=== PATIENT | female | born 1965 | race Caucasian/White ===

== ENCOUNTER 2020-06-21 16:34 | Emergency (ER) | payer OTHER, SELFPAY ==
--- NOTE | ~2020-06-21 | CT_ITS ---
EXAMINATION: CT ABDOMEN AND PELVIS WITH CONTRAST CLINICAL INFORMATION: Dominant pain COMPARISON: None TECHNIQUE: Multidetector volumetric images were obtained from the superior aspect of the liver through the pubic symphysis following administration 85 mL of Omnipaque 350 intravenous contrast. Sagittal and coronal reformatted images were obtained on the technologist's workstation. Oral contrast: No This CT examination was performed using dose optimization techniques as appropriate, variously including the following: *Automated exposure control *Adjustment of mA and/or kV according to patient size (this includes techniques or standardized protocols for targeted exams where dose is matched to indication/reason for exam; i.e. extremities or head) *Use of iterative reconstruction technique DLP: 540 mGy-cm FINDINGS: LUNG BASES: The visualized lung bases are unremarkable. LIVER, GALLBLADDER, AND BILIARY TREE: The liver is normal in size, shape, and attenuation. No focal hepatic lesion or biliary ductal dilatation is present. Gallbladder unremarkable. PANCREAS: Unremarkable. SPLEEN: Normal size. There is a 1.7 cm peripherally calcified cyst within the inferior pole of the spleen, benign. ADRENAL GLANDS: Unremarkable. KIDNEYS AND URETERS: The kidneys are normal in size, shape, and attenuation. There is a 2 mm calculus in the upper pole of left kidney. No ureteral calculi. No hydronephrosis or hydroureter. No perinephric stranding. BLADDER: Unremarkable. GASTROINTESTINAL TRACT: The small and large bowel are unremarkable. The appendix is unremarkable. ABDOMINAL WALL: Small fat-containing umbilical hernia. LYMPH NODES: Normal. VASCULAR: Unremarkable. PELVIC VISCERA: Hysterectomy. No adnexal abnormalities. OSSEOUS STRUCTURES: No acute or suspicious osseous abnormalities. CT/CT abdomen pelvis w con IMPRESSION: No acute findings within the abdomen or pelvis to explain the patient's symptomatology. Nonobstructive 2 mm calculus, left upper kidney. Hysterectomy. Small fat-containing umbilical hernia without inflammation.
[2020-06-21 16:54] VITALS: BP 130/62; PULSE 68; RESP 18; TEMP 36.4; O2SAT 100; BMI 26.5
[2020-06-21 21:20] VITALS: BP 129/67; PULSE 67; RESP 18; O2SAT 100
[2020-06-21 21:40] LABS: MANUAL DIFF FLAG NO
[2020-06-21 21:41] LABS: Basophils Percent Auto 0.7 % (0-2); Eosinophils Absolute Auto 0.1 X10*3/uL (0.0-0.4); Eosinophils Percent Auto 2.3 % (0-4); Hematocrit 36.8 % (37-47); Hemoglobin 11.8 g/dl (12.0-16.0); Lymphocytes Absolute Auto 2.9 X10*3/uL (1.2-4.9); Lymphocytes Percent Auto 48.8 % (20-40); Mean Corpuscular HGB Conc 32.1 g/dl (31.0-35.0); Mean Corpuscular Hemoglobin 29.1 pg (27.0-33.0); Mean Corpuscular Volume 90.6 fL (80-98); Mean Platelet Volume 9.9 fL (9.4-12.3); Monocytes Absolute Auto 0.6 X10*3/uL (0.1-1.2); Monocytes Percent Auto 9.2 % (2-11); Neutrophils Absolute Auto 2.3 X10*3/uL (2.0-8.3); Platelet Count 248 X10*3/uL (160-400); Red Blood Count 4.06 X10*6/uL (4.20-5.50); Red Cell Distribution Width 13.7 % (11.0-16.0)
[2020-06-21 21:47] LABS: Glucose Urine UA NEG (NEG); Leukocyte Esterase Urine NEG (NEG); Nitrite Urine NEG (NEG); PH 6.5 (5.0-8.0); Specific Gravity - Urine 1.015 (1.005-1.025); Urine Blood NEG (NEG); Urine Ketones NEG (NEG); Urine Protein NEG (NEG-TRACE)
[2020-06-21 21:50] LABS: Appearance Urine CLEAR; Color Urine YELLOW
--- NOTE | 2020-06-21 21:57 | ED_ITS ---
HPI - Abdominal Pain General Chief Complaint: Abdominal Pain Stated Complaint: abdominal pain Time Seen by Provider: 06/21/20 21:13 History of Present Illness HPI narrative: Patient is a 55-year-old female with history of diabetes. Presents today with having abdominal pain that is diffuse over the entire abdomen. Been ongoing since this morning radiates to the back. Patient denies any coughing congestion upper respiratory symptoms. No chest pain. Positive history of being on an insulin pump. Patient denies any diarrhea. Pain not affected by food. No pain on urination. Patient denies any dizziness. Related Data Previous Rx's Medication Instructions Recorded ondansetron 4 mg PO TID PRN 5 Days #10 tab 06/22/20 Allergies Allergy/AdvReac Type Severity Reaction Status Date / Time No Known Allergies Allergy Unverified 06/21/20 16:53 [No Known Allergies*] Review of Systems Review of Systems Constitutional: No Weight loss, No Fever, No Chills, No Night Sweats, No Fatigue, No Malaise ENT/Mouth: No Hearing loss, No Ear Pain, No Nasal Congestion, No Sinus Pain, No Hoarseness, No sore throat, No Rhinorrhea, No Swallowing Difficulty Eyes: No Eye Pain, No Swelling, No Redness, No Foreign Body, No Discharge, No Vision Changes Cardiovascular: No Chest Pain, No SOB, No Dyspnea on Exertion, No Orthopnea, No Edema, No Palpitations Respiratory: No Cough, No Sputum, No Wheezing, No Smoke Exposure, No Dyspnea Gastrointestinal: Positive nausea positive abdominal pain diffuse Genitourinary: no irregular bleeding, No Dysuria, No Urinary Frequency, No Hematuria, No Urinary Incontinence, No Urgency, No Flank Pain, No Urinary Flow Changes, No Hesitancy Musculoskeletal: No joint pain, No Myalgias, No Joint Swelling Skin: No Skin Lesions, No rash Neuro: No Weakness, No Numbness, No Paresthesias, No Loss of Consciousness, No Dizziness, No Headache Psych: No Anxiety/Panic, No Depression, No SI/HI/AH/VH, No Social Issues, Heme/Lymph: No Bruising, No Bleeding,No Lymphadenopathy Endocrine: No Polyuria, No Polydipsia, No Temperature Intolerance Physical Exam Vital Signs: Vital Signs: Last Vital Signs Temp 98.1 F 06/21/20 22:00 Pulse 73 06/21/20 22:00 Resp 16 06/21/20 22:00 BP 112/54 L 06/21/20 22:00 Pulse Ox 100 06/21/20 22:00 Body Mass Index 26.5 Appearance: Alert. Oriented X3. No acute distress. Eyes: Pupils equal, round and reactive to light. ENT: Pharynx normal. Neck: Normal inspection. Neck supple. No lymph nodes noted. No crepitus CVS: Normal heart rate and rhythm. Pulses normal. Normal S1 and S2 Respiratory: No respiratory distress. Breath sounds normal. No Wheezing. No rales Abdomen: Soft and nontender. No rigidity. No distention. good BS x4 Skin: Skin warm and dry. Normal skin color. Normal skin turgor. Extremities: No lower extremity edema. Neurovascular intact to all extremities. No Lacerations. No Rash Neuro: Oriented X 3. No motor deficit. No sensory deficit. Moving all extermities. No slurred speech MDM - Abdominal Pain MDM Narrative Medical decision making narrative: Patient's CT scan did not show any acute obstruction, abscess, perforation. Electrolytes are unremarkable LFTs are normal. Urine showed no evidence of infection. Patient's symptom improved. Will discharge patient home. Currently in stable condition. Differential Diagnosis Differential diagnosis: Likely abdominal pain, aortic dissection, acute appendicitis, bowel perforation, calculus of kidney, constipation, diverticu litis, gastroenteritis, mesenteric ischemia, pancreatitis, peptic ulcer disease and small bowel obstruction Medical Records Attestation: I reviewed the patient's medical records. Lab Data Attestation: I reviewed the patient's lab results. Result diagrams: 06/21/20 21:33 06/21/20 21:33 Labs: Lab Results 06/21/20 06/21/20 06/21/20 Range/Units 21:33 21:33 21:33 WBC 6.0 (4.8-10.8) X10*3/uL RBC 4.06 L (4.20-5.50) X10*6/uL Hgb 11.8 L (12.0-16.0) g/dl Hct 36.8 L (37-47) % MCV 90.6 (80-98) fL MCH 29.1 (27.0-33.0) pg MCHC 32.1 (31.0-35.0) g/dl RDW 13.7 (11.0-16.0) % Plt Count 248 (160-400) X10*3/uL MPV 9.9 (9.4-12.3) fL Immature Gran % (Auto) 0.0 (0.0-0.4) % Neut % (Auto) 39.0 L (45-73) % Lymph % (Auto) 48.8 H (20-40) % [place] % (Auto) 9.2 (2-11) % Eos % (Auto) 2.3 (0-4) % Baso % (Auto) 0.7 (0-2) % Lymph # (Auto) 2.9 (1.2-4.9) X10*3/uL [place] # (Auto) 0.6 (0.1-1.2) X10*3/uL Eos # (Auto) 0.1 (0.0-0.4) X10*3/uL Baso # (Auto) 0.0 (0.0-0.2) X10*3/uL Abs Immat Gran (auto) 0.00 (0.00-0.03) X10*3/uL Absolute Neuts (auto) 2.3 (2.0-8.3) X10*3/uL Absolute Nucleated RBC 0.000 (0.0-0.012) X10*3/uL Nucleated RBC % (auto) 0.0 (0.0-0.2) /100WBC Hold Blue Top SEE NOTE Sodium 138 (135-145) mmol/L Potassium 4.2 (3.3-5.1) mmol/L Chloride 102 (96-108) mmol/L Carbon Dioxide 30 H (22-29) mmol/L Anion Gap 10 L (12-20) BUN 8 L (9-16) mg/dL Creatinine 0.63 (0.5-1.4) mg/dL Estim Creat Clear Calc 92.3 Estimated GFR > 60 Random Glucose 139 H (60-115) mg/dL Calcium 8.9 (8.4-10.2) mg/dL Total Bilirubin 0.8 (0.0-1.0) mg/dL Direct Bilirubin 0.3 (0.0-0.5) mg/dL AST 19 (5-31) U/L ALT 13 (0-31) U/L Alkaline Phosphatase 60 (39-117) U/L Total Protein 7.1 (6.5-8.0) g/dL Albumin 4.2 (3.5-5.0) g/dL Lipase 13 (8-78) U/L Urine Color Urine Appearance Urine pH (5.0-8.0) Ur Specific [place] (1.005-1.025) Urine Protein (NEG-TRACE) MG/DL Urine Glucose (UA) (NEG) MG/DL Urine Ketones (NEG) MG/DL Urine Blood (NEG) Urine Nitrite (NEG) Ur Leukocyte Esterase (NEG) 06/21/20 Range/Units 21:33 WBC (4.8-10.8) X10*3/uL RBC (4.20-5.50) X10*6/uL Hgb (12.0-16.0) g/dl Hct (37-47) % MCV (80-98) fL MCH (27.0-33.0) pg MCHC (31.0-35.0) g/dl RDW (11.0-16.0) % Plt Count (160-400) X10*3/uL MPV (9.4-12.3) fL Immature Gran % (Auto) (0.0-0.4) % Neut % (Auto) (45-73) % Lymph % (Auto) (20-40) % [place] % (Auto) (2-11) % Eos % (Auto) (0-4) % Baso % (Auto) (0-2) % Lymph # (Auto) (1.2-4.9) X10*3/uL [place] # (Auto) (0.1-1.2) X10*3/uL Eos # (Auto) (0.0-0.4) X10*3/uL Baso # (Auto) (0.0-0.2) X10*3/uL Abs Immat Gran (auto) (0.00-0.03) X10*3/uL Absolute Neuts (auto) (2.0-8.3) X10*3/uL Absolute Nucleated RBC (0.0-0.012) X10*3/uL Nucleated RBC % (auto) (0.0-0.2) /100WBC Hold Blue Top Sodium (135-145) mmol/L Potassium (3.3-5.1) mmol/L Chloride (96-108) mmol/L Carbon Dioxide (22-29) mmol/L Anion Gap (12-20) BUN (9-16) mg/dL Creatinine (0.5-1.4) mg/dL Estim Creat Clear Calc Estimated GFR Random Glucose (60-115) mg/dL Calcium (8.4-10.2) mg/dL Total Bilirubin (0.0-1.0) mg/dL Direct Bilirubin (0.0-0.5) mg/dL AST (5-31) U/L ALT (0-31) U/L Alkaline Phosphatase (39-117) U/L Total Protein (6.5-8.0) g/dL Albumin (3.5-5.0) g/dL Lipase (8-78) U/L Urine Color YELLOW Urine Appearance CLEAR Urine pH 6.5 (5.0-8.0) Ur Specific [place] 1.015 (1.005-1.025) Urine Protein NEG (NEG-TRACE) MG/DL Urine Glucose (UA) NEG (NEG) MG/DL Urine Ketones NEG (NEG) MG/DL Urine Blood NEG (NEG) Urine Nitrite NEG (NEG) Ur Leukocyte Esterase NEG (NEG) Discharge Plan Discharge Clinical Impression: Abdominal pain Patient Disposition: Home, Self-Care Instructions: Abdominal Pain (ED) Prescriptions: New ondansetron 4 mg tablet,disintegrating 4 mg PO TID PRN (Reason: nausea and vomiting) 5 Days Qty: 10 RF: 0 Referrals: Physician,Unknown [Primary Care Provider] - 2 days PMF Past Medical History Attestation statement: The following information was validated with the patient. Social History Social History Smoking Status: Never smoker Substance Use Type: Marijuana Substance Use Frequency: Daily Last Used Substance: Days (ago) Any prior treatment program specific to substance use: No Advance Directives: No Advance Directives Information Provided: No
[2020-06-21] MEDS: ondansetron HCL 4 MG/2 ML VIAL IVPUSH (21:59)
[2020-06-21 22:00] VITALS: BP 112/54; PULSE 73; RESP 16; TEMP 36.7; O2SAT 100
[2020-06-21 22:08] LABS: Alanine Aminotransferase 13 U/L (0-31); Albumin Level 4.2 g/dL (3.5-5.0); Alkaline Phosphatase 60 U/L (39-117); Anion Gap 10 (12-20); Aspartate Amino Transferase 19 U/L (5-31); Bilirubin Direct 0.3 mg/dL (0.0-0.5); Bilirubin Total 0.8 mg/dL (0.0-1.0); Blood Urea Nitrogen 8 mg/dL (9-16); Calcium 8.9 mg/dL (8.4-10.2); Carbon Dioxide 30 mmol/L (22-29); Chloride 102 mmol/L (96-108); Creatinine Clr Calc Pharmacy 92.3; Estimated Glomerular Filt Rate > 60; Glucose Random 139 mg/dL (60-115); Potassium 4.2 mmol/L (3.3-5.1); Sodium 138 mmol/L (135-145); Total Protein 7.1 g/dL (6.5-8.0)
[2020-06-21 22:21] LABS: Lipase 13 U/L (8-78)
[2020-06-21] MEDS: iohexoL 350 MG/ML 75 ML INFUS..BTL IV (22:47)
== END 2020-06-22 00:41 | disposition home or self-care (01) ==
PROVIDERS: Emergency Provider Emergency Medicine Emergency Medical Services
DX: R10.9 Unspecified abdominal pain (principal); E11.9 Type 2 diabetes mellitus without complications; Z79.4 Long term (current) use of insulin; Z96.41 Presence of insulin pump (external) (internal)
CPT/HCPCS: 36415; 74177; 80053; 80076; 81003; 82248; 83690; 85025; 96374; 99284; J2405; Q9967

== ENCOUNTER 2021-02-14 14:16 | Outpatient (REF) | payer OTHER, SELFPAY | END 2021-02-14 14:17 | disposition home or self-care (01) | LOC: HO.LNP 14:16 | PROVIDERS: Visit Provider Physician Assistant Medical | DX: N39.0 Urinary tract infection, site not specified (principal) | CPT/HCPCS: 87086 ==

== ENCOUNTER 2023-02-24 11:16 | Outpatient (AMB) | payer OTHER, SELFPAY ==
[2023-02-24 12:38] VITALS: BP 110/60; PULSE 79; TEMP 36.6; O2SAT 99; BMI 28.9
--- NOTE | 2023-02-24 12:38 | AM.OFFWIN_ITS ---
Intake Vital Signs 02/24/23 12:38 Height 5 ft 2 in Weight 158 lb BMI 28.9 BP 110/60 Blood Pressure Location Rt brachial Position Sitting Pulse 79 Pulse Source Pulse Oximeter Temp 98 F Temp Source Oral Pulse Oximetry (%) 99 Oxygen Delivery Method Room Air Intake Visit Reasons: EP, fatigue, headache ([phone]) Intake Note: Pt is here today c/o headache and fatigue x2.5weeks Patient Tobacco Use Status: Never used Tobacco Allergies No Known Allergies [No Known Allergies*] Allergy (Verified 02/24/23 12:38) HPI HPI Comments History of Present Illness Details 57 year old female that presents for pal pitations. Patient states that she has had hard and fast beating hard for several months now denies fever chills endorses some of flashes. She has had a hysterectomy. She denies chest pain or shortness of breath PFSH Medical History (Updated 02/24/23 @ 12:57 by HERMILA Henson) Palpitations Social History Patient Tobacco Use Status: Never used Tobacco Substance Use Type: Marijuana Review of Systems Card Details: Palpitations Physical Exam Vital Signs: Last Vital Signs Temp 98 F 02/24/23 12:38 Pulse 79 02/24/23 12:38 BP 110/60 02/24/23 12:38 Pulse Ox 99 02/24/23 12:38 Oxygen Delivery Method Room Air 02/24/23 12:38 BMI result Body Mass Index 28.9 Const General: cooperative, no acute distress and alert Orientation/consciousness: patient oriented x3 Limitations: no limitations HEENT Head: Yes normal to inspection Ears: hearing grossly normal bilaterally and external ears normal General nose exam: Normal external nose present Eyes General: appearance normal, both eyes and all related structures Neck Neck: Yes normal visual inspection Chest Chest palpation & inspection: normal inspection of the chest Resp Effort & Inspection: normal respiratory effort, able to speak in complete sentences and no audible wheezes Auscultation: clear to auscultation bilaterally Cardio Rate: regular rate Rhythm: regular rhythm GI Inspection: Yes normal to inspection Palpation (GI): Soft to palpation and nontender Skin General skin exam: no rashes or lesions noted Neuro General: patient oriented x3 Psych Appearance: grossly normal Mental Status: mental status grossly normal Speech and movement: Normal speech and movement present Affect: normal affect Attitude: cooperative Thought process: Normal thought process present Thought content: Normal thought content present Assessment & Plan Assessment & Plan (1) Palpitations: Code(s): R00.2 - Palpitations Plan: Unclear etiology of patient's symptoms. Exam was benign. Will order EKG electrolytes as well as thyroid. Will follow-up on these results. Discussed with patient that she likely will need to follow-up with her primary for referral for Holter monitor and/or cardiology evaluation. Orders: Orders AMB EKG-In Office Today R00.2 - Palpitations TSH reflex Free T4 Today R00.2 - Palpitations Comprehensive Met. Panel Today R00.2 - Palpitations Magnesium Today R00.2 - Palpitations Vitamin B12 Today R00.2 - Palpitations Coding Level of Care Code Est Pt Level 3 (85023) Diagnoses Palpitations R00.2
== END 2023-02-24 13:06 | disposition home or self-care (01) ==
PROVIDERS: Visit Provider Physician Assistant
DX: R00.2 Palpitations (principal)
CPT/HCPCS: 99051; 99213

== ENCOUNTER 2023-02-24 13:15 | Outpatient (REF) | payer OTHER, SELFPAY ==
[2023-02-24 15:49] LABS: Alanine Aminotransferase 9 U/L (0-31); Albumin Level 4.3 g/dL (3.5-5.0); Alkaline Phosphatase 63 U/L (39-117); Anion Gap 13 (12-20); Aspartate Amino Transferase 15 U/L (5-31); Bilirubin Total 0.8 mg/dL (0.0-1.0); Blood Urea Nitrogen 10 mg/dL (9-16); Calcium 9.5 mg/dL (8.4-10.2); Carbon Dioxide 30 mmol/L (22-29); Chloride 102 mmol/L (96-108); Estimated Glomerular Filt Rate > 60; Glucose Random 211 mg/dL (60-115); Magnesium 2.3 mg/dL (1.6-2.6); Potassium 3.9 mmol/L (3.3-5.1); Sodium 141 mmol/L (135-145); Total Protein 7.5 g/dL (6.5-8.0)
[2023-02-24 16:05] LABS: TSH reflex Free T4 1.05 uIU/mL (0.32-4.0)
[2023-02-24 16:12] LABS: Vitamin B12 951 pg/mL (200-900)
== END 2023-02-24 13:16 | disposition home or self-care (01) ==
LOC: HO.HMGCLDS 13:15
PROVIDERS: PCP Internal Medicine; Visit Provider Physician Assistant
DX: R00.2 Palpitations (principal)
CPT/HCPCS: 36415; 80053; 82607; 83735; 84443

== ENCOUNTER 2023-04-11 08:39 | Outpatient (AMB) | payer OTHER, SELFPAY ==
[2023-04-11 09:45] VITALS: BP 112/78; PULSE 86; TEMP 36.4; O2SAT 96; BMI 28.9
--- NOTE | 2023-04-11 09:45 | AM.OFFWIN_ITS ---
Intake Vital Signs 04/11/23 09:45 Height 5 ft 2 in Weight 158 lb BMI 28.9 BP 112/78 Blood Pressure Location Lt brachial Position Sitting Pulse 86 Pulse Source Pulse Oximeter Temp 97.5 F Temp Source Temporal Artery Scan Pulse Oximetry (%) 96 Oxygen Delivery Method Room Air Intake Visit Reasons: EP Sinus [phone] Intake Note: ptis here today for sinus started last sunday Patient Tobacco Use Status: Never used Tobacco Allergies No Known Allergies [No Known Allergies*] Allergy (Verified 04/11/23 09:55) Medication List - Last Reconciled 04/11/23 by CARIE Collazo insulin lispro (Humalog U-100 Insulin) subcut Do you need a note to return to daycare/school/sports/work: No HPI HPI Comments History of Present Illness Details here today w/ sinus pain and pressure present for > 2 weeks admits to being sick before the onset of this with resolution for 1 week mild blood tinged sputum, + headache pnd causing prod cough using advil cold and sinus w + relief PFSH Medical History (Updated 04/11/23 @ 09:57 by CARIE Collazo) Palpitations Social History Patient Tobacco Use Status: Never used Tobacco Substance Use Type: Marijuana Review of Systems Const All systems reviewed & are unremarkable except as noted in HPI and below Physical Exam Vital Signs: Last Vital Signs Temp 97.5 F 04/11/23 09:45 Pulse 86 04/11/23 09:45 BP 112/78 04/11/23 09:45 Pulse Ox 96 04/11/23 09:45 Oxygen Delivery Method Room Air 04/11/23 09:45 BMI result Body Mass Index 28.9 Const Other: awake alert nad TM intact with effusion on R, clear on L purulent drainage from nares, turbinates pale and edematous, pain with palp frontal and max sinuses R>L PND RRR LS CTAB Assessment & Plan Assessment & Plan (1) Sinusitis: Code(s): J32.9 - Chronic sinusitis, unspecified Qualifiers: Sinusitis location: pansinusitis Chronicity: acute Recurrence: non- recurrent Qualified Code(s): J01.40 - Acute pansinusitis, unspecified Plan: . Plan states PCN does not work for her do not use nasal spray only saline or huber pot advil cold and sinus for 1 more day then stop. use analgesic only PRN Medications: New azithromycin For 250 mg dose pack: take 500 mg today (day 1), then 250 mg for 4 days (days 2-5) PO 5 days 6 tabs 0RF Coding Level of Care Code Est Pt Level 3 (92128) Diagnoses Acute non-recurrent pansinusitis J01.40 Sinusitis location: pansinusitis Chronicity: acute Recurrence: non-recurrent
== END 2023-04-11 10:02 | disposition home or self-care (01) ==
PROVIDERS: PCP Internal Medicine; Visit Provider Nurse Practitioner Family
DX: J01.40 Acute pansinusitis, unspecified (principal)
CPT/HCPCS: 99213

== ENCOUNTER 2024-11-01 10:58 | Emergency (ER) | payer OTHER, SELFPAY ==
--- NOTE | ~2024-11-01 | CT_ITS ---
CLINICAL HISTORY: abd pain > RUQ CT abdomen and pelvis with contrast Comparison: None provided Findings: No consolidation or effusion. The gallbladder and solid organs are within normal limits. No renal stones.Rim calcified benign cyst within the spleen. No bowel obstruction, pneumoperitoneum, or pneumatosis. Pelvic contents unremarkable. Normal appendix. No acute fracture. IMPRESSION: No acute findings. This document has been electronically signed by: Rena De Leon MD on 11/01/2024 17:27:45
--- NOTE | ~2024-11-01 | US_ITS ---
CLINICAL HISTORY: RUQ pain --- Additional Notes or Special Instructions: called in US abdomen limited Comparison: CT/SR - CT ABDOMEN PELVIS W IV CON - 11/01/24 13:30 EDT Findings: The liver is normal in size and echotexture. There is no intrahepatic bile duct dilatation. The common duct is 5 mm in diameter. The gallbladder is normal. There is no sonographic Villanueva sign. The main portal vein is antegrade. No ascites. IMPRESSION: Unremarkable limited abdominal ultrasound. This document has been electronically signed by: Rena De Leon MD on 11/01/2024 20:19:00
--- NOTE | ~2024-11-01 | CT_ITS ---
CLINICAL HISTORY: cp CT chest with contrast Comparison: CR - XR CHEST 1V - 11/01/24 11:51 EDT Findings: The heart size is normal. The visualized thyroid and mediastinum are unremarkable. No consolidation or effusion. No acute fractures. A 1.5 cm peripherally calcified cyst within the spleen. IMPRESSION: 1. No acute disease within the chest. No central pulmonary embolism. No evidence of acute aortic syndrome. Lungs are grossly clear. This document has been electronically signed by: Rena De Leon MD on 11/01/2024 17:38:46
--- NOTE | ~2024-11-01 | XR_ITS ---
CLINICAL HISTORY: cp 1 view chest x-ray Comparison: None provided Findings: The lungs are clear. Heart size is normal. No acute fracture. 1.5 cm peripherally calcified structure is seen in the left quadrant. IMPRESSION: 1. No acute cardiopulmonary abnormality. 2. 1.5 cm peripherally calcified structure in the left upper quadrant, which may represent a splenic artery aneurysm. Recommend CT abdomen for further evaluation. This document has been electronically signed by: Manny Guzman on 11/01/2024 12:55:58
--- NOTE | 2024-11-01 10:59 | ECG_ITS ---
Test Reason : CHEST PAIN Blood Pressure : */* mmHG Vent. Rate : 73 BPM Atrial Rate : 73 BPM P-R Int : 156 ms QRS Dur : 80 ms QT Int : 396 ms P-R-T Axes : 79 43 54 degrees QTcB Int : 436 ms Normal sinus rhythm Cannot rule out Anterior infarct , age undetermined Abnormal ECG No previous ECGs available Referred By: Generic ED Physician Electronically Signed By: Eduardo Estrada
[2024-11-01 11:07] VITALS: BP 147/67; PULSE 67; RESP 18; TEMP 36.7; O2SAT 97; BMI 29.3
--- NOTE | 2024-11-01 11:27 | ED_ITS ---
HPI - Chest Pain General Chief Complaint: Chest Pain Stated Complaint: back abd and chest pain Time Seen by Provider: 11/01/24 11:08 Source: patient Mode of arrival: ambulatory Limitations: no limitations History of Present Illness ED Provider: HERMILA Hendricks HPI narrative: This is a 59-year-old female history of DM I, UTIs, sinusitis presents to the emergency department with complaints of chest discomfort abdominal discomfort ongoing for the past week or so. Patient reports last week she experienced diffuse abdominal discomfort that it was severe in nature, she was not sure if it was originating from her back however it was quite uncomfortable. Over the past few days she has developed chest pressure and heaviness in the substernal region she tells me it feels like something is sitting on her chest. She denies associated shortness breath, fevers, chills, nausea, vomiting, diarrhea, recent sick contacts, headache, vision changes, dizziness, weakness, changes in bowel habits in urinary habits. Related Data Home Medications ?Medication ?Instructions ?Recorded ?Confirmed insulin lispro 100 unit/mL subcut 02/14/21 04/11/23 subcutaneous solution (Humalog U-100 Insulin) Previous Rx's ?Medication ?Instructions ?Recorded azithromycin 250 mg tablet See Rx Instructions PO .COM PLEX 5 04/12/23 days #6 tabs famotidine 20 mg tablet (Pepcid) 20 mg PO BID 5 days # 28 tabs 11/01/24 omeprazole 20 mg capsule,delayed 20 mg PO DAILY #14 ca ps 11/01/24 release Allergies Allergy/AdvReac Type Severity Reaction Status Date / Time No Known Allergies (No Known Allergy Verified 11/01/24 11:13 Allergies*) Review of Systems 2 Review of Systems: Yes all other systems are reviewed and are negative [facility] Past Medical History Attestation statement: The following information was validated with the patient. Source: old records reviewed and nursing notes reviewed Medical History (Updated 11/01/24 @ 22:50 by Darnell Morales PA-C) Palpitations Social History Social History Patient Tobacco Use Status: Never used Tobacco Smoked in Last 30 Days: No Substance Use Type: Marijuana Advance Directives: No Advance Directives Information Provided: Yes Do you have a plan to hurt others: No Plan Patient : No Physical Exam 2 Exam: Exam: Appearance: Alert.? Oriented X3.? No acute distress.? Head: Normocephalic, atraumatic, no step-offs or deformities Eyes: Pupils equal, round and reactive to light.? ENT: Pharynx normal.? Neck: Normal inspection.? Neck supple.?+palpation to anterior chest wall throughout. CVS: Normal heart rate and rhythm.? Pulses normal.? Respiratory: No respiratory distress.? Breath sounds normal.? Abdomen: Soft and Tender throughout all 4 quadrants worse to the right upper quadrant. Negative Villanueva sign. Negative Rovsing and obturator..? Skin: Skin warm and dry.? Normal skin color.? Normal skin turgor.? Extremities: No lower extremity edema.? No calf ttp. 5/5 strength to bilateral upper and lower extremities Back: No midline tenderness, no C-spine tenderness, full range of motion, no CVA tenderness bilaterally Neuro: Oriented X 3.? No motor deficit.? No sensory deficit. CN 2-12 intact Vital Signs: Vital Signs: Last Vital Signs Temp 98.4 F 11/01/24 20:06 Pulse 60 11/01/24 20:06 Resp 18 11/01/24 20:06 BP 113/53 L 11/01/24 20:06 Pulse Ox 97 11/01/24 20:06 O2 Del Method Room Air 11/01/24 20:06 BMI result Body Mass Index 29.3 vss Course Reevaluation(s) Reevaluation #1: CBC Unremarkable. Chemistry no acute findings needing intervention. Her bilirubin is slightly higher than usual 1.2 CT abdomen and pelvis has been ordered for further evaluation of this. Troponin negative, EKG nonischemic. Negative D-dimer. No indication for CTA I do not suspect ACS or PE. Flu, COVID, RSV negative. X-ray of the chest with no acute cardiopulmonary abnormalities 1.5 cm peripherally calcified structure in the left upper quadrant which could represent a splenic artery aneurysm, CT abdomen ordered and pending Time: 13:21 Reevaluation #2: Upon re-evaluation patient is still in significant discomfort Tylenol was orered Time: 16:25 Reevaluation #3: I re-evaluated patient again she is still quite uncomfortable. Will order it designated right upper quadrant ultrasound to rule out cholecystitis as her pain is localized to the right upper quadrant. Time: 17:49 Additional Reevaluation(s): 1842 Patients US of RUQ pending at this time Sign out to Darnell Consultations Consultation #1: 8:24 PM 11/01/2024 ([employer]): Patient was signed out to this provider at shift change, in summary the patient is a 59-year-old female presenting to the ED for complaints of chest pain, shortness of breath, and right upper quadrant abdominal pain. Patient had a negative CT of the abdomen, CT of the chest, negative cardiac, metabolic, viral, coagulopathic, and infectious workup. Patient was persistently tender in the right upper quadrant despite use of Toradol, IV Tylenol, and morphine. Patient was sent for a right upper quadrant ultrasound. The patient's right upper quadrant ultrasound was pending at time of sign-out. At this time the patient's right upper quadrant ultrasound has resulted and is negative for acute process. We will reassess the patient's pain and plan for discharge. 9:00 PM 11/01/2024 (Paola [employer]AN[employer]): Upon reassessment the patient reports she is having persistent gnawing epigastric and right upper quadrant abdominal pain with nausea. Patient reports symptoms have been ongoing for the past 2 days but she has felt unwell for the past 2 months. The patient reports symptoms are worse upon waking in the morning. Patient's symptoms may be related to GERD/gastritis. We will treat with GI cocktail and reassess, if symptoms improve patient will be discharged with 2 week course of omeprazole and Pepcid, as well as PCP follow up for GI referral. 10:43 PM 11/01/2024 (Paola [employer]): Patient reports symptoms have markedly improved following GI cocktail, patient likely suffering from gastritis. The patient will be discharged as described above. Medications Administered Discontinued Medications Generic Name Dose Route Start Last Admin Trade Name Freq PRN Reason Stop Dose Admin Al Hydroxide/Mg Hydroxide 30 ml 11/01/24 20:59 11/01/24 21:04 Magnesium Hydrox/Alum Hydrox 30 Ml Oral.Susp PO 11/01/24 21:00 30 ml ONCE ONE Administration Famotidine 20 mg 11/01/24 20:59 11/01/24 21:04 Famotidine 20 Mg Tablet PO 11/01/24 21:00 20 mg ONCE ONE Administration Acetaminophen 1,000 mg in 100 mls @ 400 mls/hr 11/01/24 16:38 11/01/24 19:31 Ofirmev IV 11/01/24 16:52 Infused ONCE ONE Infusion Iohexol 85 ml 11/01/24 13:38 11/01/24 13:38 Iohexol 350 Mg/Ml 100 Ml Infus..Btl IV 11/01/24 13:39 85 ml ONCE ONE Administration Ketorolac Tromethamine 30 mg 11/01/24 13:24 11/01/24 13:56 Ketorolac Tromethamine 15 Mg/Ml Vial IVPUSH 11/01/24 13:25 30 mg ONCE ONE Administration Lidocaine HCl 15 ml 11/01/24 20:59 11/01/24 21:04 Lidocaine Hcl Viscous 2 % 15 Ml Solution PO 11/01/24 21:00 15 ml ONCE ONE Administration Morphine Sulfate 2 mg 11/01/24 17:50 11/01/24 18:12 Morphine Sulfate 2 Mg/Ml Cartridge IVPUSH 11/01/24 17:51 2 mg ONCE ONE Administration Protocol Ondansetron HCl 4 mg 11/01/24 18:08 11/01/24 18:10 Ondansetron Hcl 4 Mg/2 Ml Vial IVPUSH 11/01/24 18:09 4 mg ONCE ONE Administration Ondansetron HCl 4 mg 11/01/24 20:55 11/01/24 20:59 Ondansetron Odt 4 Mg Tab.Rapdis TRANSLINGU 11/01/24 20:56 4 mg ONCE ONE Administration Medical Decision Making Medical Decision Making [facility] Narrative: 1130 59-year-old female presents with chest discomfort and abdominal discomfort ongoing for a week however worsening over the past few days. No significant cardiac history reported not on blood thinners. Physical exam anterior chest wall tenderness on palpation and diffuse abdominal pain With palpation. History and physical exam concerning for viral illness versus costochondritis. Will rule out rhabdomyolysis, electrolyte abnormalities. Unlikely ACS, PE, myocarditis, pericarditis. Diffuse abd pain makes appendicitis, cholecystitis, diverticulitits less likley no signs of acute abdomen Plan- labs, imaging Differential Diagnosis Differential Diagnoses: The differential diagnosis associated with the presentation includes ( History and physical exam concerning for viral illness versus costochondritis. Will rule out rhabdomyolysis, electrolyte abnormalities. Unlikely ACS, PE, myocarditis, pericarditis. Diffuse abd pain makes appendicitis, cholecystitis, diverticulitits less likley no signs of acute abdomen ) Admission/Observation Consideration of admission/observation: Escalation of care including admission/observation considered (possible ) Lab Data MDM Lab Attestation statement: I reviewed the patient's lab results. 11/01/24 11:46 11/01/24 11:46 Labs: Lab Results 11/01/24 11/01/24 Range/Units 11:46 13:25 WBC 5.9 (4.8-10.8) X10*3/uL RBC 4.45 (4.20-5.50) X10*6/uL Hgb 13.1 (12.0-16.0) g/dl Hct 38.6 (37.0-47.0) % MCV 86.7 (80.0-98.0) fL MCH 29.4 (27.0-33.0) pg MCHC 33.9 (31.0-35.0) g/dl RDW 13.8 (11.0-16.0) % Plt Count 249 (160-400) X10*3/uL MPV 9.5 (9.4-12.3) fL Immature Gran % (Auto) 0.2 (0.0-0.4) % Neut % (Auto) 60.1 (45-73) % Lymph % (Auto) 30.6 (20-40) % [place] % (Auto) 7.6 (2-11) % Eos % (Auto) 1.0 (0-4) % Baso % (Auto) 0.5 (0-2) % Lymph # (Auto) 1.8 (1.2-4.9) X10*3/uL [place] # (Auto) 0.5 (0.1-1.2) X10*3/uL Eos # (Auto) 0.1 (0.0-0.4) X10*3/uL Baso # (Auto) 0.0 (0.0-0.2) X10*3/uL Abs Immat Gran (auto) 0.01 (0.00-0.03) X10*3/uL Absolute Neuts (auto) 3.6 (2.0-8.3) x10*3/uL Absolute Nucleated RBC 0.000 (0.0-0.012) X10*3/uL Nucleated RBC % (auto) 0.0 (0.0-0.2) /100WBC D-Dimer High Sensitivty < 150 NG/ML Sodium 138 (135-145) mmol/L Potassium 4.3 (3.3-5.1) mmol/L Chloride 102 (96-108) mmol/L Carbon Dioxide 24 (22-29) mmol/L Anion Gap 16 (12-20) BUN 11 (9-16) mg/dL Creatinine 0.58 (0.5-1.4) mg/dL Estim Creat Clear Calc 96.1 Estimated GFR > 60 Random Glucose 214 H (60-115) mg/dL Calcium 9.5 (8.4-10.2) mg/dL Magnesium 2.0 (1.6-2.6) mg/dL Total Bilirubin 1.2 H (0.0-1.0) mg/dL AST 26 (5-31) U/L ALT 10 (0-31) U/L Alkaline Phosphatase 65 (39-117) U/L Total Creatine Kinase 30 (26-140) U/L Troponin I High Sens < 2.7 (<3.5-17.0) ng/L Total Protein 7.7 (6.5-8.0) g/dL Albumin 4.7 (3.5-5.0) g/dL Lipase 13 (8-78) U/L Urine Color Yellow Urine Appearance Clear Urine pH 6.0 (5.0-9.0) Ur Specific [place] <= 1.005 (1.005-1.025) Urine Protein Negative (Neg-Trace) mg/dL Urine Glucose (UA) Negative (Negative) mg/dL Urine Ketones 15 (Negative) mg/dL Urine Blood Negative (Negative) Urine Nitrite Negative (Negative) Ur Leukocyte Esterase Small (1+) H (Negative) Urine RBC 0-2 (0-2) /HPF Urine WBC 0-5 (0-5) /HPF Ur Squamous Epith Cells 0-2 (0-2) /HPF Urine Bacteria None Seen (None Seen) Hyaline Casts 0-2 (0-2) /LPF Influenza Type A (PCR) NEGATIVE (Negative) Influenza Type B (PCR) NEGATIVE (Negative) RSV RNA Qual (PCR) NEGATIVE (Negative) SARS-CoV-2 RNA (RT-PCR) NEGATIVE (Negative) Independent Interpretation I performed an independent interpretation of an: EKG (Vent. Rate : 73 BPM Atrial Rate : 73 BPM P-R Int : 156 ms QRS Dur : 80 ms QT Int : 396 ms P-R-T Axes : 79 43 54 degrees QTcB Int : 436 ms Normal sinus rhythm Cannot rule out Anterior infarct , age undetermined Abnormal ECG No previous ECGs available) and CT Scan Radiology Impression Discussion of test interpretation with radiology: I have reviewed the radiologist's reading. Radiologist Impression: CLINICAL HISTORY: RUQ pain --- Additional Notes or Special Instructions: called in US abdomen limited Comparison: CT/SR - CT ABDOMEN PELVIS W IV CON - 11/01/24 13:30 EDT Findings: The liver is normal in size and echotexture. There is no intrahepatic bile duct dilatation. The common duct is 5 mm in diameter. The gallbladder is normal. There is no sonographic Villanueva sign. The main portal vein is antegrade. No ascites. IMPRESSION: Unremarkable limited abdominal ultrasound. This document has been electronically signed by: Rena De Leon MD on 11/01/2024 20:19:00 Chronic Conditions Patient?s care impacted by: Diabetes (I) Discharge Plan Discharge Clinical Impression: Gastritis and duodenitis Patient Disposition: Home, Self-Care Instructions: Gastritis (ED), Duodenitis (ED), Diet for Stomach Ulcers and Gastritis (ED) Additional Instructions: Thank you for choosing [facility]'s Emergency Department for your care today. At this time there is no indication for admission to the hospital or continued ED observation, and it is safe to discharge you home. Thankfully your laboratory evaluation, EKG, CT scan of your chest, CT scan of your abdomen, gallbladder ultrasound, and chest x-ray, are all reassuring. The nature of your symptoms, and your response to a GI cocktail in the ED are indicative that your symptoms are likely secondary to inflammation of your stomach, a condition known as gastritis, and possible the 1st part of your small intestine, called duodenitis. Please take omeprazole and Pepcid as prescribed for the next 2 weeks. It is extremely important that you follow up with your primary care physician for re-evaluation, referral to a GI physician for endoscopy as indicated, additional management of your symptoms, and continued preventative care. If you do not have a primary care physician, please call the [facility] at [phone] to establish a new primary care physician. While waiting to establish your new primary care physician, you can call our Walk[facility]in [facility] at [phone] for non-emergency needs. Please return to the emergency department if you develop a severe or sudden change in your symptoms, a fever over 100.4 that does not improve with Tylenol or Ibuprofen, recurrent vomiting, or any other new or worsening symptoms or concerns. Prescriptions: New omeprazole 20 mg capsule,delayed release(DR/EC) 20 mg PO DAILY Qty: 14 0RF famotidine [Pepcid] 20 mg tablet 20 mg PO BID 5 Days Qty: 28 0RF No Action azithromycin 250 mg tablet See Rx Instructions PO .COMPLEX 5 Days Qty: 6 0RF Rx Instructions: For 250 mg dose pack: take 500 mg today (day 1), then 250 mg for 4 days (days 2-5) PO insulin lispro [Humalog U-100 Insulin] 100 unit/mL solution subcut Referrals: Rachelle,Carrie, [employer] [Primary Care Provider, Nursing] Clinical Impression: Gastritis and duodenitis Print Language: Greenlandic
--- OUTSIDE RECORDS SUMMARY | 2024-11-01 11:38 | XMS_ITS | Clinical Summary ---
Author Organization [facility] Address [address] [facility] [address] [place] [phone] Phone Care Team Providers Care Live Hanger Name Role Phone Krystyna Clark MD Unavailable [phone] Mimi Shine MD Primary Care Provider Allergies No known active allergies Medications blood-gluc transmitter-se nsor [facility] 12/12/19 12 Active miscellaneous medical supply [facility] Skin Tac Wipe adhesive barrier wipe, 1 wipe for pump and CGM site, 1 daily, 90 days 100 each 3 08/16/19 18 Active MICROLET LANCET [facility] lancets Use to test glucose 10 times per day, 90 days 900 each 3 08/16/19 18 Active vitamin K2 100 mcg Cap Take 100 mcg by mouth. 08/09/19 22 Active B complex-vitami n C-folic acid 0.8 mg Tab Take by mouth. 08/09/19 22 Active ZINC ORAL Take 22 mg by mouth. 08/09/19 22 Active GUARDIAN 4 GLUCOSE SENSOR DeviIndication s:Type 1 diabetes mellitus without complication, with long-term current use of insulin,Insuli n pump in place 1 each by Miscellaneous route every 7 days. 12 each 3 11/24/19 23 Active insulin lispro (HUMALOG U-100 INSULIN) 100 unit/mL injection vialIndication s:Type 1 diabetes mellitus without complication, with long-term current use of insulin,Insuli n pump in place Administer via insulin pump as directed 60u TDD E10.9 Z96.41 60 mL 3 10/18/19 25 Active FIASP U-100 INSULIN 100 unit/mL SolnIndication s:Type 1 diabetes mellitus without complication, with long-term current use of insulin,Insuli n pump in place Administer via insulin pump, 60u TDD E10.9 Z96.41 50 mL 3 09/28/19 25 025 Discontin ued(Formu marquita change) HUMALOG U-100 INSULIN 100 unit/mL injection vialIndication s:Type 1 diabetes mellitus without complication, with long-term current use of insulin,Insuli n pump in place Administer via insulin pump as directed 60u TDD E10.9 Z96.41 60 mL 3 10/17/19 25 025 Discontin ued(Reord er) Active Problems Problem Noted Date Diagnosed Date Fatigue 07/26/2021 Assessment & Plan (08/01/2022 12:43 PM EDT): Continues with general fatigue symptoms Routine labs ordered today Assessment & Plan (07/26/2021 1:38 PM EDT): Added labs to generally evaluate this Alice does feel improvement when she takes iron supplements, no issues with iron deficiency per previous lab results in recent past Advised to follow up with urogyn to eval hematuria which may be related to previous urogyn surgeries Insulin pump in place 03/02/2017 Assessment & Plan (07/08/2024 1:09 PM EDT): We did not adjust insulin pump settings today since Alice just resumed Medtronic insulin pump about a month ago and her activity level has changed most recently as weather has been better, I expect the automated algorithm to acjust to this over time, prandial patterns indicate that carb ratios are appropriate mostly We discussed management of hypoglycemia and trying not to treat low glucose to CGM data as this will be delayed when eating fast acting carbohydrates, advised to monitor finger stick glucose 15 min after treating low to assess glucose level, discouraged from calibrating CGM based on this result as the CGM will catch up to this rapid rise Alice did not like the Tandem Mobi functionality, felt that her patterns were very variable on this Advised to continue good efforts in self managing glucose patterns and to contact us with any questions or concerns about these Assessment & Plan (06/02/2024 3:14 PM EDT): Current insulin pump setting Time Basal Rates? Time ICR Time ISF Time Target IOB 12am 0.40u/hr 12am 10 12 am 90 12 am 110 mg/dl 5hrs 4am 0.60u/hr 6am 0.775u/hr 10am 0.425u/hr 3pm 0.50u/hr 7pm 0.375u/hr TOTAL 11.9u/day Reviewed modifications for improved diabetes management. Alice agrees to the treatment plan outlined below. Please see scanned training checklist for more in depth topics covered during out training today Alice will continue with previous glucose alerts as set on Cell Medica7 [place] Control IQ started today Reviewed differences between Control IQ vs sleep mode vs activity mode Sleep schedules set up Encouraged Alice to bolus for food before the meal. Reviewed insulin pump troubleshooting and back up plan I will check in with Alice later this week to follow up on first 48-72 hours of using the pump Alice will follow up with Dr. Clark in 1 month as previously scheduled Assessment & Plan (02/25/2024 10:58 AM EST): Current insulin pump setting Time Basal Rates? Time ICR Time ISF Time Target IOB 12am Auto u/hr 12am 10 12 am 90 12 am 100 mg/dl 4hrs OR ManualMode 100mg/dl 12am 0.40u/hr 4am 0.60u/hr 6am 0.775u/hr 10am 0.425u/hr 3pm 0.50u/hr 7pm 0.375u/hr TOTAL 11.9u/day We did not adjust insulin pump settings today based on stable CGM patterns Alice feels that her patterns have been stable despite recent illness We reviewed features of the Tandem Mobi and Omnipod 5 and also compared these to her current insulin pump system Advised to continue good efforts in self managing glucose patterns and to contact us with any questions or concerns about these Assessment & Plan (10/27/2023 11:15 PM EDT): Current insulin pump setting Time Basal Rates? Time ICR Time ISF Time Target IOB 12am Auto u/hr 12am 10 12 am 90 12 am 100 mg/dl 4hrs OR ManualMode 100mg/dl 12am 0.40u/hr 4am 0.60u/hr 6am 0.775u/hr 10am 0.425u/hr 3pm 0.50u/hr 7pm 0.375u/hr TOTAL 11.9u/day We did not adjust insulin pump settings today based on stable CGM patterns We discussed impact of insulin based on time of day Advised to continue good efforts in self managing glucose patterns and to contact us with any questions or concerns about these Assessment & Plan (08/15/2023 2:01 PM EDT): Current insulin pump setting Time Basal Rates? Time ICR Time ISF Time Target IOB 12am Auto u/hr 12am 10 12 am 90 12 am 120 mg/dl 4hrs OR ManualMode 100mg/dl 12am 0.40u/hr 4am 0.60u/hr 6am 0.775u/hr 10am 0.425u/hr 3pm 0.50u/hr 7pm 0.375u/hr TOTAL 11.9u/day CGM evaluation: CV% goal <36% (30.4%) Time in range goal >70% (70%) Hyperglycemia >180 <25% (23%) Hyperglycemia >250 <10% (6%) Hypoglycemia <70 <3% (1%) Hypoglyemia <54 <1% (0%) We did not adjust insulin pump settings today Encouraged to continue her good efforts in managing her glucose patterns and to contact us with any questions or concerns Assessment & Plan (08/01/2022 11:24 AM EDT): Current insulin pump setting Time Basal Rates? Time ICR Time ISF Time Target IOB 12am Auto u/hr 12am 10 12 am 90 12 am 120 mg/dl 4hrs OR ManualMode 100mg/dl 12am 0.40u/hr 4am 0.60u/hr 6am 0.775u/hr 10am 0.425u/hr 3pm 0.50u/hr 7pm 0.375u/hr TOTAL 11.9u/day CGM evaluation: CV% goal <36% (35.6%) Time in range goal >70% (66%) Hyperglycemia >180 <25% (23%) Hyperglycemia >250 <10% (9%) Hypoglycemia <70 <3% (2%) Hypoglyemia <54 <1% (0%) We did not adjust insulin pump settings today Encouraged to continue her good efforts in managing her glucose patterns and to contact us with any questions or concerns Assessment & Plan (01/31/2022 11:21 AM EST): Current insulin pump setting Time Basal Rates? Time ICR Time ISF Time Target IOB 12am Auto u/hr 12am 10 12 am 90 12 am 120 mg/dl 4hrs OR ManualMode 100mg/dl 12am 0.40u/hr 4am 0.60u/hr 6am 0.775u/hr 10am 0.425u/hr 3pm 0.50u/hr 7pm 0.375u/hr TOTAL 11.9u/day CGM evaluation: CV% goal <36% (36.2%) Time in range goal >70% (68%) Hyperglycemia >180 <25% (20%) Hyperglycemia >250 <10% (11%) Hypoglycemia <70 <3% (1%) Hypoglyemia <54 <1% (0% We did not adjust insulin pump settings today Encouraged to continue her good efforts in managing her glucose patterns Assessment & Plan (07/26/2021 1:17 PM EDT): We did not have glucose data to review today due to technical issues with [facility] Alice feels that her overall patterns have been ok, her lifestyle has been more variable so this has affected patterns a bit Overall control remains very good Assessment & Plan (01/20/2021 11:25 AM EDT): Current insulin pump setting Time Basal Rates? Time ICR Time ISF Time Target IOB 12am Auto u/hr 12am 10 12 am 90 12 am 120 mg/dl 4hrs OR ManualMode 12am 0.30u/hr 4am 0.50u/hr 6am 0.775u/hr 10am 0.425u/hr 3pm 0.50u/hr 7pm 0.375u/hr TOTAL 11.3u/day We did not adjust insulin pump settings We discussed upcoming insulin pump technology, particularly the change to 780G when this is available should reduce alarms for calibrations since this will only require one calibration at start of sensor The following are treatment goals on Medtronic AIDAlice's unique parameters are noted in (): Medtronic 770G CGM wear goal >85% (89%), Automode >80% (94%) CGM evaluation: CV% goal <36% (33%) Time in range goal >70% (75%) Hyperglycemia >180 <25% (19%) Hyperglycemia >250 <10% (6%) Hypoglycemia <70 <3% (0%) Hypoglyemia <54 <1% (0%) Assessment & Plan (07/19/2020 9:42 PM EDT): Current insulin pump setting Time Basal Rates? Time ICR Time ISF Time Target IOB 12am Auto u/hr 12am 10 12 am 90 12 am 120 mg/dl 4hrs OR ManualMode 12am 0.30u/hr 4am 0.50u/hr 6am 0.775u/hr 10am 0.425u/hr 3pm 0.50u/hr 7pm 0.375u/hr TOTAL 11.3u/day We did not adjust insulin pump settings Alice follows fairly consistent intermittent fasting routine and has a long fasting window, her glucose control is very stable during this period, she has some prandial variability, advised to not allow glucose to rise too high prior to activity since this prompts automatic increase in insulin delivery as the algorithm tries to correct blood sugars, during increased activity this increase in insulin output is putting Alice at risk for hypoglycemia The following are treatment goals on Medtronic AIDAlice's unique parameters are noted in (): Medtronic 770G CGM wear goal >85% (86%), Automode >80% (90%) CGM evaluation: CV% goal <36% (36.3%) Time in range goal >70% (70%) Hyperglycemia >180 <25% (20%) Hyperglycemia >250 <10% (9%) Hypoglycemia <70 <3% (1%) Hypoglyemia <54 <1% (none) Assessment & Plan (01/19/2020 11:15 AM EST): Current insulin pump setting Time Basal Rates? Time ICR Time ISF Time Target IOB 12am Auto u/hr 12am 10 12am 90 12am 120mg/dl 4 hrs OR ManualMode 12am 0.3u/hr 4am 0.5u/hr 6am 0.775u/hr 10am 0.425u/hr 3pm 0.525u/hr 7pm 0.375u/hr We did not make changes to insulin pump settings today We discussed CGM patterns together; there is a pattern of modest elevation in blood sugar which seems to correspond to days when she has a second cup of coffee but does not bolus for this, Alice will start doing this consistently Assessment & Plan (07/14/2019 10:55 AM EDT): We did not make any adjustments in insulin settings We discussed the importance of changing sites in a timely fashion and rotating sites We discussed the likelihood that overall control may be affected by prolonged infusion set wear time Assessment & Plan (06/10/2018 1:14 PM EDT): Current insulin pump setting Time Basal Rates Time ICR Time ISF Time Target IOB 12am AutoMode 12am 13 12 am 1:90 12 am 100mg/dl 4hrs 11am 10 We discussed a change in midday I:C ratio, this should help reduce the postprandial glucose rise after first meal of the day which is around midday All other settings were unchanged Assessment & Plan (12/10/2017 8:25 PM EDT): Resumed Automode today Encouraged to call with any questions or concerns practical nurse current use of insulin 03/02/2017 Type 1 diabetes mellitus wit hout complication, with long-term current use of insulin 03/02/2017 Overview (12/10/2017): DIABETES HISTORY Diagnosis - type 1 diabetes, dx at age 21 Treatment - insulin pump therapy since , CGM 2012 Assessment & Plan (06/02/2024 3:37 PM EDT): Training provided today on Tandem mobi with Dexcom G7 Reviewed insulin pump therapy specifics Alice continues to use CGM consistently Encouraged to stay active and to continue efforts at eating a healthy diet Alice has follow up with Dr. Clark as previously scheduled in 1 month Assessment & Plan (02/25/2024 10:57 AM EST): Has done well on Medtronic 780G in automode, Alice is looking forward to upgrading this to Tandem Mobi and has started this process, we discussed training; we also discussed how this compares to the Omnipod 5 system We did not adjust insulin pump settings, we did not have CGM data to review today as Alice's insulin pump system is not sharing with our clinic Encouraged to continue to evaluate patterns and contact me if she notes any changes in these Encouraged to continue healthy lifestyle habits Will follow up with me in 4 months, Alice will also return in 2 months as a pump start follow up after her Tandem Mobi insulin pump start, she is encouraged to contact me with any questions in the interim Assessment & Plan (10/27/2023 11:23 PM EDT): Has done well on Medtronic now on 780G in automode, Alice is looking forward to upgrading this to Tandem when due for an upgrade in a few months We did not adjust insulin pump settings, overall patterns appear to be generally stable, GMI 6.9% range, stable A1c compared to last, this is in fair range and higher than expected based on Alice's CGM patterns We discussed impact of physical activity later in the day compared to early in the day on insulin requirement and risk for hypoglycemia, 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 Her LDL cholesterol is 194, while her HDL cholesterol is 71, while her triglycerides are within the normal range. There is no evidence of abnormal protein in her urine and her blood pressure is within the normal range. Given her normal blood pressure and absence of abnormal protein in her urine, lisinopril is not recommended. It is recommended that she commence a statin regimen. We did not adjust insulin pump settings today, Alice is encouraged to continue her efforts at healthy lifestyle habits; doing well on Medtronic 780G with Guardian 4 CGM, patterns are modestly improved compared to our last visit Alice may be eligible to participate in the Vertex encapsulation trial, she is advised to keep me posted as she follows with research team, she is likely to have changes in insulin requirement if on experimental protocol Follow-up A follow-up appointment is scheduled for 3 months and 6 months from now. Assessment & Plan (08/01/2022 11:26 AM EDT): Has done well on Medtronic 770G in automode, 780G now approved and will preorder this with Medtronic, we discussed this briefly today We did not adjust insulin pump settings, overall patterns appear to be generally stable, GMI in low 7% range, modestly improved A1c compared to last Encouraged to continue to evaluate patterns and contact me if she notes any changes in these Encouraged to continue healthy lifestyle habits Will follow up with Jasmyn in 3 months and with me in 6 months, Alice was encouraged to contact me with any questions in the interim Assessment & Plan (01/31/2022 11:23 AM EST): Has done well on Medtronic 770G in automode, awaiting approval of 780G, we revisited this today but there is no news on when this will be available We did not adjust insulin pump settings, overall patterns appear to be generally stable Encouraged to continue to evaluate patterns and contact me if she notes any changes in these Remains uninterested in seasonal flu and most recently available COVID booster Will follow up with Jasmyn in 3 months and with me in 6 months, Alice was encouraged to contact me with any questions in the interim Assessment & Plan (07/26/2021 1:37 PM EDT): Has done well on Medtronic 770G in automode, awaiting approval of 780G We did not adjust insulin pump settings due to lack of reviewable data, Alice is encouraged to share her [facility] data with us which we will help her establish so that we can access this remotely even between visits Encouraged to continue to evaluate patterns and contact me if she notes any changes in these, we will also take a look at her CGM patterns once we establish sharing data through [employer] We revisited consideration for COVID vaccine booster, she remains uninterested in this We will follow up with Jasmyn in 3 months and with me in 6 months, Alice was encouraged to contact me with any questions Assessment & Plan (01/20/2021 11:28 AM EDT): Has done well on Medtronic 770G in automode We did not adjust insulin pump settings despite the rise in A1c since all of Alice's glucose patterns indicate that she is at target and she has not noted any worsening that would justify today's A1c She is encouraged to continue to evaluate patterns and contact me if she does note any changes in these Fortunately Alice's GI symptoms have abated so it is unlikely that she has gastroparesis which was a consideration at our last visit; foot exam is benign today We discussed consideration for covid vaccine booster Alice has upcoming appt with our inclusion paraeducator in 3 months and we will follow up again in 6 months, Alice was encouraged to contact me with any questions Assessment & Plan (07/19/2020 9:32 PM EDT): Has done well on Medtronic 770G in automode We discussed strategies to address points of variability during the day particularly as related to preactivity hyperglycemia and activity related hypoglycemia and how these are affected by a system with AID We did not adjust insulin pump settings today but discussed strategies to reduce variability in patterns Current GI symptoms seem somewhat acute though Alice was asked to follow up for diabetes related etiologies which may explain her symptoms, we discussed gastroparesis in particular, autonomic neuropathy is another diabetes related complication which may cause GI symptoms, neither of these explain Alice's symptoms, she is encouraged to contact [facility] for evaluation, routine labs have been ordered Alice has upcoming appt with our inclusion paraeducator in 3 months and we will follow up again in 6 months, Alice was encouraged to contact me with any questions Assessment & Plan (01/19/2020 11:18 AM EST): Has continued to do well in Automode, glucose readings are very stable overall with large percentage of readings in target range A1c and other routine labs are overdue, these have been ordered for Alice and she is encouraged to have these done at her convenience We discussed CGM download, all patterns are at goal: TIR >70%, >180 <25% >250 <5% <70 <4%; one portion of the day which seems to be associated with elevated glucose may be related to omission for insulin for a second cup of coffee at midday, Alice will try to bolus for this to see if this helps her overall control at this time Encouraged to call with any questions or concerns Assessment & Plan (07/14/2019 11:04 AM EDT): Has continued to do well in Automode, glucose readings are very stable overall A1c is stable but we discussed how this stability has actually indicated better control over time, the overall average glucose has not changed much which is represented by a stable A1c however the variability around that average has improved tremendously with much fewer lows and less significant periods of highs All CGM findings are at goal: TIR >70%, >180 <25% >250 <5% <70 <4% Left foot/leg symptoms are likely related to localized musculoskeletal factors rather than DPN, encouraged to do some stretching, gentle yoga to see if this helps symptoms Encouraged to continue healthy lifestyle habits Encouraged to call with any questions or concerns We discussed current symptoms of chills, fatigue, headache, encouraged to monitor symptoms, if these worsen particularly if associated with fever, cough, SOB then Alice is encouraged to call her PCP office or ER triage at [facility] for instructions, if symptoms appear to be worsening but she continues to be stable Alice is advised not to present to her PCP office or ER directly prior to calling Assessment & Plan (06/10/2018 1:13 PM EDT): Has been doing well in Automode A1c is stable and glucose is most variable during the day likely related to suboptimal I:C ratio for first meal of the day, we adjusted this today; overnight glucose is with minimal variability Encouraged to continue healthy lifestyle habits We discussed ongoing Vit D supplementation for h/o low Vit D, recommend 2000IU once daily during winter, 1000IU during spring/summer months since Alice is outdoors often during this time; should have Vit D rechecked at some point but declines routine labs at this time Encouraged to call with any questions or concerns Assessment & Plan (12/10/2017 8:24 PM EDT): Has done very well on Medtronic 670G We discussed resuming Automode which Alice did not realize she had accidentally disabled several weeks ago, she resumed this prior to leaving our office A1c is improved despite manual mode over past month or so, glucose control is generally better when in Automode per Alice which may lead to further improvement in A1c when in Automode consistently We did not adjust insulin pump settings today Alice has appt with Elida So coming up in February Encouraged to call with any questions or concerns Assessment & Plan (03/02/2017 5:11 PM EST): She has not been back to see ANTOLIN. Biliary colic 03/02/2017 Assessment & Plan (03/02/2017 5:10 PM EST): She will call her Registered Client Associate office, ask them to forward the U/S results. Hyperlipidemia Assessment & Plan (07/08/2024 1:02 PM EDT): Most recent lipid profile is from spring 2023, this continues to indicate elevated LDL, while TG and HDL are in desired range We had discussed in the past that statin therapy is advisable and she should consider this as recommended by PCP Encouraged to continue healthy diet Assessment & Plan (02/25/2024 10:48 AM EST): Most recent lipid profile is from spring 2022, this indicated elevated LDL, while TG and HDL are in desired range We had discussed in the past that statin therapy is advisable and she should consider this as recommended by PCP Encouraged to continue healthy diet Assessment & Plan (10/27/2023 11:12 PM EDT): Most recent lipid profile indicates continued elevated LDL, while TG and HDL are in desired range We had discussed in the past that statin therapy is advisable and she should consider this as recommended by PCP Encouraged to continue healthy diet Assessment & Plan (08/15/2023 2:03 PM EDT): Most recent lipid profile indicates continued elevated LDL, TG and HDL are in desired range We discussed that statin therapy is advisable and she should consider this as recommended by PCP Encouraged to continue healthy diet Assessment & Plan (08/01/2022 11:23 AM EDT): Most recent lipid panel reviewed, this is from last spring, LDL elevated Not currently on statin therapy Started red yeast rice last spring Routine labs ordered Assessment & Plan (01/31/2022 11:20 AM EST): Most recent LDL elevated Not currently on statin therapy Started red yeast rice after our last visit Will be due for routine labs next spring Resolved Problems Problem Noted Date Diagnosed Date Resolved Date Fitting and adjustment of insulin pump 07/03/2017 01/20/2021 Right upper quadrant abdominal pain 04/04/2017 01/31/2022 Assessment & Plan (04/04/2017 3:15 PM EST): I alicia a picture of right upper quadrant anatomy and explained the physiology of the gallbladder. We discussed formation of stones, but she does not have any that are evident on the ultrasound. This does not preclude micro-stones. We discussed gallbladder dysfunction and EF. We will obtain a CCK HIDA and I will call her with the results. She understands and agrees with this plan. Lateral epicondylitis of right elbow 03/02/2017 01/31/2022 Encounters Date Type Department Care Team Description 10/15/2024 Telephone [facility] [address] [place] [id number] Krystyna Clark MD Medication Prior Authorization 09/26/2024 Telephone [facility] [address] [place] [id number] Tammie Kilgore CMA Medication Prior Authorization (Nov[employer] ) 09/06/2024 5:55 PM EDT Ancillary Procedure [address] [address] Vance Yen PA-C 09/06/2024 5:15 PM EDT Ancillary Procedure [address] [address] Vance Yen PA-C 09/06/2024 3:19 PM EDT - 09/06/2024 5:27 PM EDT Emergency [facility] [address] [place] [address] Discharge Disposition: Home or Self Care from Last 3 Months Immunizations Immunization Administration Dates Next Due COVID-19 (Pre-01/08) Pfizer Vaccine, mRNA, PF ,07/04/2020 Family History Medical History Relation Comments Cancer Mother 2 Diabetes mellitus Sibling 2 Relation Status Comments Mother 1 Mother 2 Sibling 1 Sibling 2 Social History Tobacco Use Types Packs/Day Years Used Date Smoking Tobacco: Never Smokeless Tobacco: Never Tobacco Cessation:Counseling Given: Not Answered Alcohol Use Standard Drinks/Week Comments No 0 (1 standard drink = 0.6 oz pur e alcohol) Education Answer Date Recorded Are you interested in more education? Not on piyush e 07/14/2022 Are you concerned about learning? Not on file 07/14/2022 No 07/14/2022 No 07/14/2022 Food Answer Date Recorded Within the past 6 months we worried whether our food would run out before we got money to buy more. Never True 09/06/2024 Within the past 6 months the food we bought just didn't last and we didn't have enough money to get more. Never True Residential Stability Answer Date Recor ded What is your housing situation today? I have kelley sing 09/06/2024 How many times have you move d in the past 12 months? Zero (I did not move) 09/06/2024 Paying for Meds Answer Date Recorded Do you have trouble paying for medicines? No 09/06/2024 Paying Utility Bills Answer Date Record ed Do you have trouble paying your heating or elect ricity bill? No 09/06/2024 Transportation Answer Date Recorded Has the lack of transportati on kept you from medical appointments or from getting medications? No 09/06/2024 Digital Access Answer Date Recorded No 09/06/2024 Yes 09/06/2024 Do you have reliable internet access at home? Ye s 09/06/2024 Do you have a device (e.g., phone, tablet, computer) with a working camera? Yes 09/06/2024 Intimate Partner Violence Answer Date R ecorded Are you denied basic needs s uch as food, clothing, or medical care? No 09/06/2024 In the past 12 months have y ou been in a relationship with a person who hurts, threatens, or tries to control you? No 09/06/2024 Are you denied basic needs s uch as food, clothing, or medical care? No 09/06/2024 In the past 12 months have y ou been in a relationship with a person who hurts, threatens, or tries to control you? No 09/06/2024 Comments No Sex and Gender Information Value Date Recorded Sex Assigned at Female 08/22/2017 10:55 AM EDT Legal Sex Female 9:42 PM EDT Gender Identity Female 08/22/2017 10:55 AM EDT Sexual Orientation Straight 07/11/2019 9: 12 AM EDT Last Filed Vital Signs Vital Sign Reading Time Taken Comments Blood Pressure 122/72 09/06/2024 5:04 PM EDT Pulse 67 09/06/2024 5:04 PM EDT Temperature 36.2 C (97.2 F) 09/06/2024 5:04 PM EDT Respiratory Rate 17 09/06/2024 5:04 PM EDT Oxygen Saturation 100% 09/06/2024 5:04 PM EDT Inhaled Oxygen Concentration - - Weight 73.9 kg (162 lb 14.4 oz) 09/06/2024 2:57 PM EDT Height 157.5 cm (5' 2 ) 09/06/2024 2:57 PM EDT Body Mass Index 29.79 09/06/2024 2:57 PM EDT Plan of Treatment Upcoming Encounters Date Type Department Care Team (Late st Contact Info) Description 01/06/2025 4:20 PM EDT Office Visit [facility] [address] [place] [address] Krystyna Clark MD [address] [facility], [address] [place] [address] [email or web address] Health Maintenance Due Date Last Done Comments Adult Td,Tdap Booster 1965 DEPRESSION SCREENING 1976 HEPATITIS C SCREENING 1982 HIV ONE-TIME SCREENING (18-65 YEARS) 1982 PNEUMOCOCCAL VACCINES (50+ years) (1 of 2 - PCV) 1983 PAP SMEAR 1985 MAMMOGRAM 2004 COLOGUARD 2009 FIT TEST 2009 FOBT 2009 SIGMOIDOSCOPY 2009 VIRTUAL COLONOSCOPY 2009 ZOSTER VACCINES (1 of 2) 2014 LIPID PANEL 08/02/2023 08/01/2022, 07/17, 07/19/2020 URINE MICROALBUMIN/CREATININE RATIO 08/02/2023 08/01/2022, 07/26/2021, 07/19/2020 COVID-19 VACCINE (3 - season) 2023 07/25/2020, 07/04/2020 RSV VACCINE (1 - Risk 60-74 years 1-dose series) 2024 DIABETIC EYE EXAM 08/21/2024 08/22/2023, , 08/22/2023, Additional history exists BLOOD PRESSURE 01/07/2025 07/08/2024 HEMOGLOBIN A1C 01/07/2025 07/08/2024, 08/0 11/2023, 07/26/2023, Additional history exists COLONOSCOPY 08/30/2030 08/30/2020 COLORECTAL CANCER SCREENING 08/30/2030 SMOKING STATUS SCREENING (Once After 26 Yrs) Completed 09/06/2024 HEPATITIS A VACCINES Aged Out No long er eligible based on patient's age to complete this topic HIB VACCINES Aged Out No longer eligi ble based on patient's age to complete this topic MENINGOCOCCAL VACCINES (ACWY) Aged Out No longer eligible based on patient's age to complete this topic MENINGOCOCCAL VACCINES (B) Aged Out N o longer eligible based on patient's age to complete this topic Medical Devices Implanted Type Area Cow Tender Device Identifier Shelf Expiration Date Model / Serial / Lot Pump-Minimed Medtronic 780g / [id number] / Description:Guardian 4 Senso r- Do not expose the pump, transmitter, or sensor to MRI equipment, diathermy devices, or other devices that generate strong magnetic martinez (for example, x-ray, CT scan, or other types of radiation). Strong magnetic martinez can cause the system to malfunction, and result in serious injury. If the pump is exposed to a strong magnetic field, discontinue use and contact 24-Hour Technical Support for further assistance. Kar94 09/04/23 Procedures Procedure Name Priority Date/Time Associated Diagnosis Comments US BEDSIDE Routine 09/06/2024 5:54 PM EDT LIPASE STAT 09/06/2024 3:12 PM EDT LFTS (HEPATIC PANEL) STAT 09/06/2024 3:12 PM EDT BASIC METABOLIC PANEL STAT 09/06/2024 3:12 PM EDT CBC AND DIFFERENTIAL STAT 09/06/2024 3:12 PM EDT POCT HEMOGLOBIN A1C Routine 07/08/2024 1 1:44 AM EDT Type 1 diabetes mellitus without complication, with long-term current use of insulin Insulin pump in place MICROALBUMIN/CREATIN INE RATIO, RANDOM URINE Routine 08/01/2022 11:14 AM EDT Type 1 diabetes mellitus without complication, with long-term current use of insulin LIPID PANEL Routine 08/01/2022 11:12 AM EDT Hyperlipidemia, unspecified hyperlipidemia type Type 1 diabetes mellitus without complication, with long-term current use of insulin DIABETES EYE EXAM FOR RESULT ENTRY ONLY Routine 06/20/2022 ENDOSCOPY, COLON 08/30/2020 11:2 5 AM EDT from Last 3 Months or Most Recently Relevant to Health Maintenance Results * US BEDSIDE (09/06/2024 5:54 PM EDT) Anatomical Region Laterality Modality Ultrasound Narrative 09/06/2024 5:54 PM EDT Alfredo Asencio MD 09/06/2024 8:16 PM Bedside Ultrasound Date/Time: 09/06/2024 5:54 PM Performed by: Vance Yen PA-C Authorized by: Vance Yen PA-C Exam Type: Aorta Aorta Exam Findings & Impression: Indications: patient with back pain and risk factors for athlerosclerotic disease Aorta Diameter (cm): the entire abdominal aorta from the SMA to the distal aorta was visualized as less than 3 cm in diameter Iliacs Diameter (cm): The iliacs were visualized as less than 1.5 cm in diameter Overall Impression: negative Images: Images Saved: Yes Accession Number: [id number] Vance Yen PA-C IMG POINT OF CARE EXAMS Final Result * LFTs (hepatic panel) (09/06/2024 3:12 PM EDT) ALKALINE PHOSPHATASE 65 39 - 117 U/L [facility] TOTAL BILIRUBIN 0.7 0.0 - 1.2 mg/dL [facility] DIRECT BILIRUBIN 0.2 0.0 - 0.2 mg/dL [facility] Bilirubin (Indirect) 0.5 0 - 1.5 mg/dL [facility] AST 13 0 - 37 U/L [facility] ALT 7 0 - 40 U/L [facility] TOTAL PROTEIN 7.0 6.5 - 8.0 g/dL [facility] ALBUMIN 4.1 3.9 - 4.8 g/dL [facility] GLOBULIN 2.9 1 - 4.8 g/dL [facility] A/G Ratio 1.41 1.00 - 4.80 RATIO [facility] Blood 09/06/2024 3:12 PM EDT 09/06/2024 3:20 PM EDT us Alfredo Asencio MD LAB BLOOD ORDERAB LES Final Result [facility] [address] [place], [place] [id number] * (ABNORMAL) CBC and differential (09/06/2024 3:12 PM EDT) WBC 5.05 4.00 - 11.00 K/uL [facility] RBC 4.06 4.00 - 5.20 M/uL [facility] HGB 11.8(L) 12.0 - 16.0 g/dL [facility] HCT 36.2 36.0 - 46.0 % [facility] PLT 258 150 - 450 K/uL [facility] MCV 89.2 80.0 - 100.0 fL [facility] MCH 29.1 27.0 - 31.0 pg [facility] MCHC 32.6 32.0 - 36.0 g/dL [facility] RDW 13.9 11.5 - 14.5 % [facility] MPV 9.8 8.4 - 12.0 fL [facility] NRBC 0.00 0.00 /100 WBCs [facility] ABSOLUTE NRBC 0.00 0.00 K/uL [facility] DIFF METHOD Auto [facility] NEUTS 45.9(L) 48.0 - 76.0 % [facility] LYMPHS 41.4(H) 18.0 - 41.0 % [facility] MONOS 9.7 4.0 - 11.0 % [facility] EOS 2.2 0.0 - 5.0 % [facility] BASOS 0.6 0.0 - 1.5 % [facility] Granulocytes, immature (%) 0.2 0.0 - 0.9 % [facility] ABSOLUTE NEUTS 2.32 1.92 - 7.60 K/uL [facility] ABSOLUTE LYMPHS 2.09 0.72 - 4.10 K/uL [facility] ABSOLUTE MONOS 0.49 0.16 - 1.10 K/uL [facility] ABSOLUTE EOS 0.11 0.00 - 0.50 K/uL [facility] ABSOLUTE BASOS 0.03 0.00 - 0.15 K/uL [facility] Granulocytes, immature 0.01 0.00 - 0.09 K/uL [facility] Blood 09/06/2024 3:12 PM EDT 09/06/2024 3:20 PM EDT us Alfredo Asencio MD LAB BLOOD ORDERAB LES Final Result [facility] [address] [place] [address] * Lipase (09/06/2024 3:12 PM EDT) LIPASE 20 16 - 63 U/L [facility] Blood 09/06/2024 3:12 PM EDT 09/06/2024 3:20 PM EDT Alfredo Asencio MD LAB BLOOD ORDERAB LES Final Result [address] [address] * (ABNORMAL) Basic metabolic panel (09/06/2024 3:12 PM EDT) [facility] SODIUM 140 133 - 146 mmol/L [facility] CHLORIDE 102 96 - 108 mmol/L [facility] POTASSIUM 4.3 3.3 - 5.1 mmol/L [facility] CO2 29 21 - 35 mmol/L [facility] BUN 10 6 - 19 mg/dL [facility] CREATININE 0.50 0.5 - 1.5 mg/dL [facility] GLUCOSE 184(H) 70 - 99 mg/dL [facility] CALCIUM 9.4 8.4 - 10.3 mg/dL [facility] EGFR 107 >59 mL/min/1.7 3m2 [facility] Comment:Estimated glomerular filtration rate calculated using the CKD-EPI refit equation. ANION GAP 13 10 - 20 mmol/L [facility] Blood 09/06/2024 3:12 PM EDT 09/06/2024 3:20 PM EDT Alfredo Asencio MD LAB BLOOD ORDERAB LES Final Result [address] [address] * (ABNORMAL) POCT Hemoglobin A1c (07/08/2024 11:44 AM EDT) [facility] Hemoglobin A1c 7.9(A) 4.2 - 5.6 % Other 07/08/2024 11:4 4 AM EDT Krystyna Clark MD POINT OF CARE TEST ORDERABLES F inal Result * Microalbumin/creatinine ratio, random urine (08/01/2022 11:14 AM EDT) URINE MICROALBUMIN <1.2 0 - 2.3 mg/dL [facility] URINE CREATININE 24 mg/dL [facility] MICROALB/CRE RATIO NOT CALCULATED 0 - 20 mg/g Cre [facility] Comment:due to Microalbumin <1.2 Urine (Urine) 08/01/2022 11: 14 AM EDT 08/01/2022 11:16 AM EDT Krystyna Clark MD URINE ORDERABLES Final Result Performing Organization Address City/State/[facility] Co de Phone Number [address] [address] * (ABNORMAL) Lipid panel (08/01/2022 11:12 AM EDT) HDL 73 mg/dL [facility] Comment: Interpretation <40 mg/dL: Low HDL cholesterol (major risk factor for CHD) Greater than or equal to 60 mg/dL: High HDL cholesterol ( negative risk factor for CHD) HDL - cholesterol is affected by a number of factors, e.g. smoking, excerise, hormones, sex and age. CHOLESTEROL 258(H) 0 - 240 mg/dL [facility] TRIGLYCERIDES 79 30 - 160 mg/dL [facility] LDL 169(H) 50 - 129 mg/dL [facility] Comment: LDL levels in terms of risk for coronary heart disease: <100 mg/dL: Optimal 100-129 mg/dL: Near or above optimal 130-159 mg/dL: Borderline high 160-189 mg/dL: High >190 mg/dL: Very High CARDIAC RISK RATIO 3.5 3.3 - 4.4 C [facility] Blood 08/01/2022 11:1 2 AM EDT 08/01/2022 11:14 AM EDT Krystyna Clark MD LAB BLOOD ORDERABLES Final Resu lt [facility] [address] [place] [address] * DIABETES EYE EXAM FOR RESULT ENTRY ONLY (06/20/2022) EYE EXAM SEE SCANNED MEDIA us Historical Provider HEALTH MAINTENANCE Final Result * ENDOSCOPY, COLON (08/30/2020 11:25 AM EDT) Narrative Transcriptions Marion Dockery MD - 08/30/2020 11:25 AM EDT Patient Name: Alice Arango Attending MD:: MARION DOCKERY MD Procedure Date: 08/30/2020 11:25 AM Date of : 1965 Age: 55 Admit Type: Outpatient Gender: Female Room: [place] [address] Referring MD: Alfa Durand MD, KRYSTYNA CLARK MD Exam Type: Colonoscopy Indications: This is the patient's first colonoscopy, Generalized abdominal pain, Change in bowel habits Medications: Monitored Anesthesia Care Procedure: Informed consent was obtained from the patient after discussion of the indications, limitations, alternatives, benefits, and risks of the procedure. Risks specifically discussed include but are not limited to medication reactions, missed lesions, bleeding, perforation, or the need for emergentsurgery. Throughout the procedure, the patient's bloodpressure, pulse, end-tidal CO2, and oxygen saturations were monitored continuously. The Olympus pediatric variable colonoscopePCF-[id number] #5 was introduced through the anus and advanced tothe terminal ileum, with identification of theappendiceal orifice and IC valve. The colonoscopy was performed without difficulty. The patient tolerated theprocedure fairly well. The quality of the bowel preparationwas good. Complications: No immediate complications. Estimated blood loss: Minimal. Findings: A single small angiodysplastic lesion withoutbleeding was found in the transverse colon. There was a small lipoma, 9 mm in diameter, in the transverse colon. Retroflexion in the right colon was performed. Normal mucosa was found in the entire colon.Biopsies for histology were taken with a cold forceps fromthe ascending colon, transverse colon and descendingcolon for evaluation of microscopic colitis. Estimatedblood loss was minimal. Non-bleeding internal hemorrhoids were found during retroflexion. The hemorrhoids were moderate. The terminal ileum appeared normal. Impression: - A single non-bleeding colonic angiodysplasticlesion. - Small lipoma in the transverse colon. - Normal mucosa in the entire examined colon.Biopsied. - Non-bleeding internal hemorrhoids. - The examined portion of the ileum was normal. Recommendation: - I will send results of your biopsy to you and your referring physician or provider. If you do notreceive notification within 3 weeks, please call ouroffice. - Repeat colonoscopy in 10 years for screeningpurposes. - Return to GI office as previously scheduled. MARION DOCKERY MD 08/30/2020 12:04:01 PM This report has been signed electronically. Number of Addenda: 0 Note Initiated On: 08/30/2020 11:25 AM Procedure Code(s): --- Professional --- 62792, Colonoscopy, flexible; with biopsy, single or multiple --- Technical --- 66550, Colonoscopy, flexible; with biopsy, single or multiple Diagnosis Code(s): --- Professional --- K55.20, Angiodysplasia of colon without hemorrhage D17.5, Benign lipomatous neoplasm of intra-abdominal organs K64.8, Other hemorrhoids R10.84, Generalized abdominal pain R19.4, Change in bowel habit --- Technical --- K55.20, Angiodysplasia of colon without hemorrhage D17.5, Benign lipomatous neoplasm of intra-abdominal organs K64.8, Other hemorrhoids R10.84, Generalized abdominal pain R19.4, Change in bowel habit CPT copyright 2018 [employer]. All rights reserved. The codes documented in this report are preliminary and upon letterpress setter reviewmay be revised to meet current compliance requirements. Procedure Date: 08/30/2020 11:25:[address] [place] [address] Krystyna Clark MD GI PROCEDURE ORDERABLES Final R esult from Last 3 Months or Most Recently Relevant to Health Maintenance [facility] [employer] * Guarantor: Alice Arango Account Type Relation to Patient Date of Phone Billing Address Personal/Family Self 1965 [address] [employer] Value Payment SystemsHEALTH [employer] Value Payment SystemsHEALTH [employer] [facility] [address] [place] [address]Ministry [facility] SALIDAMinistry of [facility] Care Teams Live Hanger Relationship Specialty Start Date End Date Mimi Shine MD [address] [place] [address] [place] [address] PCP - General Internal Medicine 11/08/22 Krystyna Clark MD [address] [facility], [address] [place] [id number] Historical LMR Provider 01/01/17 Additional Source Comments The information contained in this document represents components of the legal health record. It is not the complete legal health record.[facility]
[2024-11-01 11:51] LABS: MANUAL DIFF FLAG NO
[2024-11-01 11:52] LABS: Hematocrit 38.6 % (37.0-47.0); Hemoglobin 13.1 g/dl (12.0-16.0); Imm Gran Abs Auto 0.01 X10*3/uL (0.00-0.03); Imm Gran Pct Auto 0.2 % (0.0-0.4); Lymphocytes Absolute Auto 1.8 X10*3/uL (1.2-4.9); Mean Corpuscular HGB Conc 33.9 g/dl (31.0-35.0); Mean Corpuscular Hemoglobin 29.4 pg (27.0-33.0); Mean Corpuscular Volume 86.7 fL (80.0-98.0); NRBC Abs Auto 0.000 X10*3/uL (0.0-0.012); NRBC Pct Auto 0.0 /100WBC (0.0-0.2); Platelet Count 249 X10*3/uL (160-400); Red Blood Count 4.45 X10*6/uL (4.20-5.50); White Blood Count 5.9 X10*3/uL (4.8-10.8)
[2024-11-01 12:01] LABS: D Dimer High Sensitivity < 150 NG/ML
[2024-11-01 12:10] LABS: Alanine Aminotransferase 10 U/L (0-31); Albumin Level 4.7 g/dL (3.5-5.0); Alkaline Phosphatase 65 U/L (39-117); Anion Gap 16 (12-20); Aspartate Amino Transferase 26 U/L (5-31); Blood Urea Nitrogen 11 mg/dL (9-16); Calcium 9.5 mg/dL (8.4-10.2); Carbon Dioxide 24 mmol/L (22-29); Chloride 102 mmol/L (96-108); Creatinine Clr Calc Pharmacy 96.1; Estimated Glomerular Filt Rate > 60; Lipase 13 U/L (8-78); Magnesium 2.0 mg/dL (1.6-2.6); Potassium 4.3 mmol/L (3.3-5.1); Sodium 138 mmol/L (135-145); Total Protein 7.7 g/dL (6.5-8.0)
[2024-11-01 12:33] LABS: Resp Syncy Virus RNA Qual PCR NEGATIVE (Negative); SARS COV2 PCR INHOUSE NEGATIVE (Negative)
[2024-11-01 13:10] LABS: Troponin-I High Sensitivity < 2.7 ng/L (<3.5-17.0)
[2024-11-01 13:20] VITALS: BP 123/67; PULSE 66; RESP 7; TEMP 36.7; O2SAT 97
[2024-11-01 13:32] LABS: Appearance Urine Clear; Glucose Urine UA Negative (Negative); PH 6.0 (5.0-9.0); Specific Gravity - Urine <= 1.005 (1.005-1.025); UMIC TRIGGER UACC YES
[2024-11-01] MEDS: iohexoL 350 MG/ML 100 ML INFUS..BTL 85 ML IV (13:38)
[2024-11-01 13:41] LABS: UACC Culture Trigger YES
[2024-11-01 16:53] VITALS: BP 139/64; PULSE 69; RESP 18; O2SAT 99
[2024-11-01 17:47] VITALS: BP 113/54; PULSE 68; RESP 12; TEMP 36.6; O2SAT 95
[2024-11-01 20:06] VITALS: BP 113/53; PULSE 60; RESP 18; TEMP 36.9; O2SAT 97
[2024-11-01] MEDS: Magnesium Hydrox/Alum Hydrox 30 ML ORAL.SUSP PO (21:04)
[2024-11-01] MEDS: Lidocaine HCl Viscous 2 % 15 ML SOLUTION PO (21:04)
[2024-11-01 23:02] VITALS: BP 126/61; PULSE 66; RESP 18; TEMP 36.4; O2SAT 97
== END 2024-11-01 23:04 | disposition home or self-care (01) ==
PROVIDERS: Physician Assistant; Emergency Provider Emergency Medicine; PCP Nurse Practitioner Family
DX: K29.70 Gastritis, unspecified, without bleeding (principal); K29.80 Duodenitis without bleeding; R07.89 Other chest pain; E10.9 Type 1 diabetes mellitus without complications; R10.2 Pelvic and perineal pain; Z03.818 Encounter for observation for suspected exposure to other biological agents ruled out; Z79.4 Long term (current) use of insulin; Z79.899 Other long term (current) drug therapy
CPT/HCPCS: 36415; 71045; 71260; 74177; 76705; 80053; 81001; 82550; 83690; 83735; 84484; 85025; 85379; 87086; 87637; 93005; 96365; 96366; 96375; 99284; 99285; J0131; J1885; J2270; J2405; Q9967

== ENCOUNTER → 2024-11-01 10:59 | Outpatient (BNV) | payer OTHER, SELFPAY | PROVIDERS: Emergency Provider Emergency Medicine; PCP Nurse Practitioner Family; Visit Provider Internal Medicine Cardiovascular Disease | DX: R94.31 Abnormal electrocardiogram [ECG] [EKG] (principal); R07.9 Chest pain, unspecified | CPT/HCPCS: 93010 ==

== ENCOUNTER → 2024-11-01 11:28 | Outpatient (BNV) | payer OTHER, SELFPAY | PROVIDERS: Emergency Provider Emergency Medicine; PCP Nurse Practitioner Family; Visit Provider Radiology Vascular & Interventional Radiology | DX: D73.4 Cyst of spleen (principal); R07.9 Chest pain, unspecified; R10.11 Right upper quadrant pain | CPT/HCPCS: 71045; 71260; 74177; 76705 ==